=== PATIENT | male | born 1950 | race Caucasian/White ===

== ENCOUNTER 2023-01-07 12:50 | Emergency (ER) | payer OTHER, MEDICARE ==
[2023-01-07 13:01] VITALS: BP 111/52; PULSE 65; RESP 18; TEMP 97.7; BMI 22.1
[2023-01-07] MEDS ORDERED: CEPHALEXIN MONOHYDRATE 500 MG CAPSULE (UD) PO ONE (14:12)
[2023-01-07] MEDS ORDERED: CEPHALEXIN MONOHYDRATE 500 MG CAPSULE (UD) ONE (14:24)
== END 2023-01-07 14:30 | disposition home or self-care (01) ==
LOC: JERFT 12:50 → JER 12:50 → JERFT 14:30
DX: R22.31 Localized swelling, mass and lump, right upper limb (principal); L03.113 Cellulitis of right upper limb; M79.641 Pain in right hand
CPT/HCPCS: 73130-TC-RT-FY; 99283-25

== ENCOUNTER 2024-06-08 12:39 | Emergency (ER) | payer OTHER, MEDICARE ==
[2024-06-08 12:43] VITALS: BP 129/70; PULSE 64; RESP 18; TEMP 98.1; BMI 22.8
[2024-06-08] MEDS ORDERED: DIPHTH,PERTUSS(ACELL),TET 0.5 ML DISP.SYRIN IM ONE (13:08)
[2024-06-08] MEDS: DIPHTH,PERTUSS(ACELL),TET 0.5 ML DISP.SYRIN IM ONE (13:15)
== END 2024-06-08 13:53 | disposition home or self-care (01) ==
LOC: JERFT 12:39
PROC: 0HQFXZZ Repair Right Hand Skin, External Approach (ICD-10-PCS; principal; 2024-06-08)
PROC: 3E0234Z Introduction of Serum, Toxoid and Vaccine into Muscle, Percutaneous Approach (ICD-10-PCS; 2024-06-08)
DX: S61.212A Laceration without foreign body of right middle finger without damage to nail, initial encounter (principal); Z23 Encounter for immunization; W23.2XXA Caught, crushed, jammed or pinched between a moving and stationary object, initial encounter; Y99.0 Civilian activity done for income or pay
CPT/HCPCS: 90715; 99284-25